=== PATIENT | male | born 1960 | race Caucasian/White ===

== ENCOUNTER → 2017-04-09 | Day surgery (SDC) | payer BC ==
[~2017-04-09] MED LIST: CETI10TA22 PO; HYDROmorphone 2 MG/ML VIAL IV PRN; IV RINGERS,LACTATED 1000ML 1,000 ML IV SCH; LIDOCAINE 1% 1 ML SYRINGE. ID PRN; LIDOCAINE 2% PF Vial for OR 5 ML VIAL. ONE; MORPHINE SULFATE 2 MG/ML DISP.SYRIN. IV PRN; ONDANSETRON PF 4 MG/2 ML VIAL. IV PRN; PROCHLORPERAZINE 10 MG/2 ML VIAL. IV PRN; PROPOFOL 40 ML IV ONE; fentaNYL PF VIAL 100 MCG/2 ML VIAL IV PRN
--- NOTE | 2017-04-09 07:42 | PDOC2 ---
CONSULT Date of Consult Date of Consult DATE: 04/09/17 TIME: 07:38 Reason for Consult Reason for Consult: CRC screening/dysphagia Identification/Chief Complaint Chief Complaint 56 year old patient is seen with above. Last colonoscopy was unrevealing for polyps or cancer five years ago. No change in bowel habits or bleeding is noted. Weight and appetite are stable. Infrequent dysphagia for solids is noted. Occasonial heartburn is encountered. With the persistent symptoms, he requests further evaluation. Problems: Past Medical History Cardiovascular: No pertinent hx Pulmonary: No pertinent hx GI: No pertinent hx Past Surgical History Past Surgical History: Appendectomy, Tonsillectomy Family History Family History: Cancer (colon father) Social History No ALCOHOL: rare Current Medications Current Medications Current Medications Ondansetron HCl (Zofran) 4 mg PRN Q6HRS PRN IV NAUSEA/VOMITING; Start 04/09/17 at 07:00; Stop 04/10/17 at 06:59 Fentanyl Citrate (Fentanyl 2ml Vial) 25 mcg PRN Q5MIN PRN IV MILD PAIN; Start 04/09/17 at 07:00; Stop 04/10/17 at 06:59 Fentanyl Citrate (Fentanyl 2ml Vial) 50 mcg PRN Q5MIN PRN IV MODERATE PAIN; Start 04/09/17 at 07:00; Stop 04/10/17 at 06:59 Morphine Sulfate 1 mg PRN Q10MIN PRN IV SEVERE PAIN; Start 04/09/17 at 07:00; Stop 04/10/17 at 06:59 Ringer's Solution 1,000 ml @ 30 mls/hr Q24H IV Last administered on 04/09/17t 07:08; Start 04/09/17 at 07:00; Stop 04/09/17 at 18:59 Lidocaine HCl 2 ml PRN 1X PRN ID PRIOR TO IV START; Start 04/09/17 at 07:00; Stop 04/10/17 at 06:59 Hydromorphone HCl (Dilaudid) 0.5 mg PRN Q10MIN PRN IV SEV PAIN, Second choice; Start 04/09/17 at 07:00; Stop 04/10/17 at 06:59 Prochlorperazine Edisylate (Compazine) 5 mg PACU PRN PRN IV NAUSEA, MRX1; Start 04/09/17 at 07:00; Stop 04/10/17 at 06:59 Propofol 60 ml @ As Directed STK-MED ONCE IV ; Start 04/09/17 at 07:32; Stop at 07:33; Status DC Lidocaine HCl (Lidocaine Pf 2% Vial) 5 ml STK-MED ONCE .ROUTE ; Start 04/09/17 at 07:32; Stop 04/09/17 at 07:33; Status DC Active Scripts Active Reported Zyrtec (Cetirizine Hcl) 10 Mg Tablet 10 Mg PO Allergies Allergies: Coded Allergies: asparagus (Unverified Allergy, Intermediate, hives, 04/09/17) Physical Exam General: Alert, Oriented X3 HEENT: Atraumatic Heart: Regular rate, Normal S1, Normal S2 Abdomen: Normal bowel sounds, Soft, No tenderness Vitals VITALS Vital Signs Date Time Temp Pulse Resp B/P (MAP) Pulse Ox O2 Delivery O2 Flow Rate FiO2 04/09/17 06:53 97.1 73 20 94 97.1 Assessment/Plan Assessment/Plan Colorectal cancer screening- with family history of colon cancer, interval colonoscopy is warranted. Dysphagia- etiology to be determined. Schatzki ring leads differential. EGD to assess. Risks and benefits discussed with patient who is willing to proceed. SHARDA JOEL MD Apr 09, 2017 07:42
[2017-04-09 08:25] VITALS: BP 111/64
--- NOTE | 2017-04-12 14:38 | PATHOLOGY ---
PATHOLOGY REPORT * * * * * * * * FINAL DIAGNOSIS: Colon, rectum, biopsy: - Adenomatous polyps, 2. (SKM/db; 04/12/2017) REPORT ELECTRONICALLY SIGNED BY: Trey Lam M.D. DATE/TIME: 04/12/2017 14:37 * * * * * * * * GROSS PATHOLOGY: Received in formalin labeled "Pa Jessica, rectal polyp," are two segments of stewart soft tissue measuring 0.3 and 0.5 cm in maximum dimension. The specimen is submitted entirely in cassette A1. ([facility]; 04/09/17) INITIAL CPT CODE(S): A; 13756 Professional services performed by [facility] [place] [address] Technical services performed by [facility] at [address] [place] [address], [place] [address]. SPECIMEN(S) RECEIVED: A.Rectal polyp CLINICAL HISTORY: Screening PATIENT: PA JESSICA /AGE: 211/02/1960 (Age: 56) PATIENT #: [id number] ALT CASE #: SPECIMEN COLLECTION DATE: 04/09/2017 SPECIMEN RECEIVED DATE: 04/09/2017 [facility] - [address] [place] [address] - PHONE: [phone] * * * END OF REPORT * * *
== END | disposition home or self-care (01) ==
LOC: SURG 06:39
PROVIDERS: ATTEND Internal Medicine Gastroenterology
DX: Z12.11 Encounter for screening for malignant neoplasm of colon (principal); K64.0 First degree hemorrhoids; K62.1 Rectal polyp; Z80.0 Family history of malignant neoplasm of digestive organs; K29.40 Chronic atrophic gastritis without bleeding; I10 Essential (primary) hypertension; Z72.89 Other problems related to lifestyle; Z91.018 Allergy to other foods
CPT/HCPCS: 36415; 43235; 45385; 82607; 88305; J2001; J2704

== ENCOUNTER → 2020-03-15 | Outpatient (CLI) | payer BC ==
[2017-04-09 08:25] VITALS: BP 111/64
[~2020-03-15] MED LIST changes: -CETI10TA22 PO; +CETI10TA24 PO; -HYDROmorphone 2 MG/ML VIAL IV PRN; -IV RINGERS,LACTATED 1000ML 1,000 ML IV SCH; -LIDOCAINE 1% 1 ML SYRINGE. ID PRN; -LIDOCAINE 2% PF Vial for OR 5 ML VIAL. ONE; -MORPHINE SULFATE 2 MG/ML DISP.SYRIN. IV PRN; -ONDANSETRON PF 4 MG/2 ML VIAL. IV PRN; -PROCHLORPERAZINE 10 MG/2 ML VIAL. IV PRN; -PROPOFOL 40 ML IV ONE; -fentaNYL PF VIAL 100 MCG/2 ML VIAL IV PRN
--- NOTE | 2020-03-15 10:58 | KCIC ---
RS Compliance Statement: One or more of the following individualized dose reduction techniques were utilized for this examination: 1. Automated exposure control 2. Adjustment of the mA and/or kV according to patient size 3. Use of iterative reconstruction technique Coronary calcium score CT chest without contrast History: 59-year-old male with hypertension. Technique: With retrospective electrocardiogram gating axial reconstructed noncontrast images of the chest at the level of the coronary arteries was performed. Images were post processed on workstation and calcium score calculated using the modified Agatston Janowitz protocol. Findings: Total coronary calcium score is 32.5. This is a mild plaque burden and mild cardiovascular disease risk. This is based on the calcium score of 0 of the left main coronary artery, 30.5 of the left anterior descending artery, score of 0 of the left circumflex artery and score of 2 of the right coronary artery. Noncoronary findings demonstrate a large calcified subcarinal lymph node. Calcified left hilar lymph node. Great vessels are normal caliber. Cardiac size normal, no pericardial effusion. There is probably mild fatty infiltration of the visualized liver. There is a calcified granuloma in the left lower lobe. No pleural abnormality is seen. The central airways are patent. Mild atelectasis or scarring in the medial right lower lobe adjacent to endplate spurring of the thoracic spine. IMPRESSION: Patient's total calcium score is 32.5. Electronically signed by: Jason Hurtado MD (03/15/2020 10:55 AM) [id number]
== END ==
LOC: KCIC CT 08:42
PROVIDERS: ATTEND Physician Assistant
DX: Z13.6 Encounter for screening for cardiovascular disorders (principal); I10 Essential (primary) hypertension; J84.10 Pulmonary fibrosis, unspecified; I25.10 Atherosclerotic heart disease of native coronary artery without angina pectoris
CPT/HCPCS: 75571